=== PATIENT | male | born 1990 | race Caucasian/White ===

== ENCOUNTER 2025-06-09 11:35 | Emergency (ER) | payer MEDICAID ==
[~2025-06-09] VITALS: Ht 180.3 cm; Wt 118.0 kg
[2025-06-09 11:40] VITALS: O2SAT 95
[2025-06-09 11:55] VITALS: BP 160/69; PULSE 82; RESP 18; TEMP 36.8; O2SAT 96
[2025-06-09] MEDS: AMOXICILLIN/POTASSIUM CLAVULANATE 875/125MG TAB PO ONE (12:16)
[2025-06-09] MEDS: DEXAMETHASONE 4MG TABLET PO ONE (12:17)
[2025-06-09] MEDS ORDERED: AMOX1TAB16 MT (12:20)
== END 2025-06-09 14:09 | disposition home or self-care (01) ==
LOC: ER 13:41
DX: L03.211 Cellulitis of face (principal); K04.7 Periapical abscess without sinus
CPT/HCPCS: 99283; J8540